=== PATIENT | female | born 1965 | race Hispanic/Latino ===

== ENCOUNTER → 2024-01-19 | Outpatient (CLI) | payer OTHER | END | disposition home or self-care (01) | LOC: RAH 15:10 | PROVIDERS: ATTEND Internal Medicine | DX: M47.816 Spondylosis without myelopathy or radiculopathy, lumbar region (principal); M48.07 Spinal stenosis, lumbosacral region | CPT/HCPCS: 72100 ==

== ENCOUNTER → 2024-01-31 | Outpatient (CLI) | payer OTHER | END | disposition home or self-care (01) | LOC: RAH 14:04 | PROVIDERS: ATTEND Internal Medicine | DX: Z96.651 Presence of right artificial knee joint (principal) | CPT/HCPCS: 73560 ==